=== PATIENT | male | born 1970 ===

== ENCOUNTER → 2021-11-24 11:18 | Outpatient (CLI) | payer SELFPAY ==
--- NOTE | ~2021-11-24 | US_ITS ---
EXAMINATION: US abdomen complete DATE: 11/24/2021 12:00 INDICATION: Abdominal pain. TECHNIQUE: Multiple grayscale and Doppler ultrasound images of the abdomen were obtained. COMPARISON: None FINDINGS: Abdominal aorta is normal in caliber. Inferior vena cava is normal. The visualized portions of the head, body, and tail of the pancreas are normal. There is a 1.8 cm hyperechoic mass in the li epifanio. There is an 8 mm cyst in the liver. There is normal flow in main portal vein. The gallbladder is normal in size and contains sludge and a stone. Gallbladder wall thickening is noted. There is no so nographic Santana sign. The common duct is normal and measures 5 mm. The kidneys are normal in size. T he spleen is normal in size. IMPRESSION: 1. 1.8 cm hyperechoic liver mass. In the absence of known malignancy or chronic liver disease, this f inding is likely a hemangioma. 2. Cholelithiasis. Gallbladder wall thickening may be seen with chronic cholecystitis, chronic liver disease, or interstitial edema. Reviewed, dictated and finalized at location A. REGISTRAR IMPRESSION: 1. 1.8 cm hyperechoic liver mass. In the absence of known malignancy or chronic liver disease, this finding is likely a hemangioma. 2. Cholelithiasis. Gallbladder wall thickening may be seen with chronic cholecy stitis, chronic liver disease, or interstitial edema.
== END ==
PROVIDERS: Visit Provider Family Medicine
DX: R10.9 Unspecified abdominal pain (principal); R16.0 Hepatomegaly, not elsewhere classified; K80.20 Calculus of gallbladder without cholecystitis without obstruction
CPT/HCPCS: 76700